=== PATIENT | female | born 1960 | race Caucasian/White ===

== ENCOUNTER 2017-05-01 05:56 | Inpatient (IN) | payer OTHER ==
[2017-05-01] MEDS ORDERED: HEPARIN 1000 UNITS/ML 10 ML INJ (06:56)
[2017-05-01] MEDS ORDERED: CEFAZOLIN 1 GM INJ (06:56)
[2017-05-01] MEDS ORDERED: SODIUM CL BACTERIOSTATIC 30 ML INJ (06:57)
[2017-05-01] MEDS ORDERED: VANCOMYCIN 1 GM (PMX) 250 ML (07:28)
[2017-05-01] MEDS ORDERED: PROPOFOL 20 ML (07:35)
[2017-05-01] MEDS ORDERED: SUCCINYLCHOLINE CHLORIDE 100 MG/5 ML SYG IV (07:35)
[2017-05-01] MEDS ORDERED: MIDAZOLAM 1 MG/ML 2 ML INJ (07:36)
[2017-05-01] MEDS ORDERED: LIDOCAINE 1% (MDV) 20 ML INJ (07:36)
[2017-05-01] MEDS ORDERED: PHENYLephrine (100 MCG/ML) 5ML SYG ×2 (07:53→08:03)
[2017-05-01] MEDS ORDERED: ONDANSETRON 4 MG INJ (09:00)
[2017-05-01] MEDS ORDERED: DEXAMETHASONE 4 MG/ML 1 ML INJ (09:00)
[2017-05-01] MEDS: BUPIVACAINE 0.25%/EPI (SDV) 30 ML INJ (12:06)
[2017-05-01] MEDS: GELATIN SIZE 100 SPONGE (12:07)
[2017-05-01] MEDS: THROMBIN 5000 UNIT VIAL (12:07)
[2017-05-01] MEDS ORDERED: NACL 0.9% 3 ML SYG IV ×2 (13:00→14:00)
[2017-05-01] MEDS ORDERED: NALOXONE (0.4 MG/ML) INJ IV ×3 (13:00→14:00)
[2017-05-01] MEDS ORDERED: PROCHLORPERAZINE 10 MG TAB PO (13:00)
[2017-05-01] MEDS ORDERED: ONDANSETRON 4 MG INJ IV (13:00)
[2017-05-01] MEDS ORDERED: morphine 10 MG INJ (13:18)
[2017-05-01] MEDS ORDERED: morphine (1 MG/ML) 10ML SYRINGE IV ×2 (13:19→13:30)
[2017-05-01] MEDS: HYDROmorphONE 0.2 MG/ML PCA IV ×3 (13:29→20:54)
[2017-05-01] MEDS: morphine (1 MG/ML) 10ML SYRINGE IV (13:30)
[2017-05-01] MEDS ORDERED: morphine 1 MG/ML 30 ML (PCA) (13:36)
[2017-05-01] MEDS ORDERED: MEPERIDINE 25 MG INJ (13:47)
[2017-05-01] MEDS: MEPERIDINE 25 MG INJ IV (13:51)
[2017-05-01] MEDS: MIDAZOLAM 1 MG/ML 2 ML INJ IV (13:59)
[2017-05-01] MEDS: morphine 1 MG/ML 30 ML (PCA) IV (14:00)
[2017-05-01] MEDS ORDERED: morphine 1 MG/ML 30 ML (PCA) IV (14:00)
[2017-05-01] MEDS ORDERED: EPHEDrine SULFATE 50 MG/5 ML SYG (16:03)
[2017-05-01] MEDS ORDERED: ROCURONIUM 50 MG INJ (16:03)
[2017-05-01] MEDS ORDERED: NON-FORMULARY/PATIENT OWN MED (Glatiramer Acetate (Copaxone) 40 MG) SQ (19:00)
[2017-05-01] MEDS: VANCOMYCIN 1 GM (PMX) 250 ML IVPB (19:20)
[2017-05-01] MEDS: ATORVASTATIN 80 MG TAB PO (20:49)
[2017-05-01] MEDS: TIOTROPIUM 18 MCG CAPSULE INHA DEV INH (21:00)
[2017-05-02] MEDS: VANCOMYCIN 1 GM (PMX) 250 ML IVPB (00:22)
[2017-05-02] MEDS: ACETAMINOPHEN 325 MG TAB PO (00:22)
[2017-05-02] MEDS: HYDROCODONE/APAP (5/325) TAB PO (01:10)
[2017-05-02 05:18] LABS: HEMATOCRIT 34.1 % (37.0-47.0); HEMOGLOBIN 11.1 g/dl (12.0-16.0)
[2017-05-02 05:36] LABS: ANION GAP 12 (8-16); BLOOD UREA NITROGEN 10 mg/dl (7-20); CALCIUM 9.2 mg/dl (8.4-10.2); CARBON DIOXIDE 29 mmol/L (21-31); CHLORIDE 104 mmol/L (97-110); CREATININE 0.67 mg/dl (0.44-1.00); GLUCOSE 141 mg/dl (70-220); POTASSIUM 4.9 mmol/L (3.5-5.1); SODIUM 140 mmol/L (135-144)
[2017-05-02] MEDS: HYDROmorphONE 0.2 MG/ML PCA IV ×3 (05:37→23:42)
[2017-05-02] MEDS: [UNRECOGNIZED DRUG - REMARK] XX ×2 (09:00→17:00)
[2017-05-02] MEDS: BISOPROLOL 5 MG TAB PO (09:00)
[2017-05-02] MEDS: DIAZEPAM 5 MG TAB PO ×2 (09:15→21:15)
[2017-05-02] MEDS: TIOTROPIUM 18 MCG CAPSULE INHA DEV INH (09:16)
[2017-05-02] MEDS: BUPROPION (XL) 150 MG TAB PO (09:16)
[2017-05-02] MEDS: morphine (ER) 15 MG TAB PO (09:41)
[2017-05-02 14:37] LABS: ADD UMIC NO; UR ASCORBIC ACID NEGATIVE (NEGATIVE); UR BILIRUBIN (Dip) NEGATIVE (NEGATIVE); UR BLOOD (Dip) NEGATIVE (NEGATIVE); UR CLARITY CLEAR (CLEAR); UR COLOR STRAW (YELLOW); UR GLUCOSE (Dip) NEGATIVE (NEGATIVE); UR KETONES (Dip) NEGATIVE (NEGATIVE); UR LEUKOCYTE ESTERASE (Dip) NEGATIVE Leu/ul (NEGATIVE); UR NITRITE (Dip) NEGATIVE (NEGATIVE); UR TOTAL PROTEIN (Dip) NEGATIVE (NEGATIVE); UR UROBILINOGEN (Dip) NEGATIVE (NEGATIVE)
[2017-05-02] MEDS: ATORVASTATIN 80 MG TAB PO (21:15)
[2017-05-03] MEDS: [UNRECOGNIZED DRUG - REMARK] XX ×3 (01:00→16:46)
[2017-05-03] MEDS: DIAZEPAM 5 MG TAB PO ×2 (08:03→19:42)
[2017-05-03] MEDS: TIOTROPIUM 18 MCG CAPSULE INHA DEV INH (08:25)
[2017-05-03] MEDS: HYDROmorphONE 0.2 MG/ML PCA IV (08:26)
[2017-05-03] MEDS: morphine (ER) 15 MG TAB PO ×2 (08:26→23:51)
[2017-05-03] MEDS: BISOPROLOL 5 MG TAB PO ×2 (08:27→08:28)
[2017-05-03] MEDS: BUPROPION (XL) 150 MG TAB PO (08:27)
[2017-05-03] MEDS: HYDROCODONE/APAP (5/325) TAB PO ×3 (12:22→20:20)
[2017-05-03] MEDS: HYDROmorphONE 1 MG/ML SYG IV ×4 (14:48→23:51)
[2017-05-03] MEDS: SALMETEROL/FLUTICASONE 250/50 INHA INH ×2 (15:39→20:20)
[2017-05-03] MEDS: NICOTINE (21 MG/24 HR) PATCH TRANSDERM (15:40)
[2017-05-03] MEDS: ATORVASTATIN 80 MG TAB PO (19:42)
[2017-05-04] MEDS: [UNRECOGNIZED DRUG - REMARK] XX ×3 (00:42→16:24)
[2017-05-04] MEDS: HYDROmorphONE 1 MG/ML SYG IV ×4 (02:12→09:40)
[2017-05-04] MEDS: TIOTROPIUM 18 MCG CAPSULE INHA DEV INH (08:25)
[2017-05-04] MEDS: SALMETEROL/FLUTICASONE 250/50 INHA INH ×2 (08:25→20:14)
[2017-05-04] MEDS: morphine (ER) 15 MG TAB PO ×2 (08:26→20:14)
[2017-05-04] MEDS: BUPROPION (XL) 150 MG TAB PO (08:27)
[2017-05-04] MEDS: BISOPROLOL 5 MG TAB PO (08:27)
[2017-05-04] MEDS: DIAZEPAM 5 MG TAB PO ×2 (08:27→20:15)
[2017-05-04] MEDS: NICOTINE (21 MG/24 HR) PATCH TRANSDERM (08:31)
[2017-05-04] MEDS: HYDROCODONE/APAP (5/325) TAB PO ×3 (11:28→20:45)
[2017-05-04] MEDS: morphine 2 MG INJ IV (12:07)
[2017-05-04] MEDS: morphine 4 MG/ML VIAL IV ×3 (14:10→21:44)
[2017-05-04] MEDS: ATORVASTATIN 80 MG TAB PO (20:14)
[2017-05-05] MEDS: morphine 4 MG/ML VIAL IV ×6 (00:32→21:31)
[2017-05-05] MEDS: [UNRECOGNIZED DRUG - REMARK] XX ×3 (01:00→17:00)
[2017-05-05] MEDS: HYDROCODONE/APAP (5/325) TAB PO ×5 (01:01→18:35)
[2017-05-05] MEDS: morphine (ER) 15 MG TAB PO ×2 (08:24→20:51)
[2017-05-05] MEDS: BUPROPION (XL) 150 MG TAB PO (08:24)
[2017-05-05] MEDS: SALMETEROL/FLUTICASONE 250/50 INHA INH ×2 (08:25→20:51)
[2017-05-05] MEDS: TIOTROPIUM 18 MCG CAPSULE INHA DEV INH (08:25)
[2017-05-05] MEDS: DIAZEPAM 5 MG TAB PO ×2 (08:25→20:52)
[2017-05-05] MEDS: BISOPROLOL 5 MG TAB PO (08:25)
[2017-05-05] MEDS: NICOTINE (21 MG/24 HR) PATCH TRANSDERM (08:26)
[2017-05-05] MEDS: BISACODYL 10 MG SUPP PR (11:49)
[2017-05-05] MEDS: ATORVASTATIN 80 MG TAB PO (20:51)
[2017-05-06] MEDS: [UNRECOGNIZED DRUG - REMARK] XX ×3 (00:45→16:33)
[2017-05-06] MEDS: morphine 4 MG/ML VIAL IV ×4 (01:18→17:09)
[2017-05-06] MEDS: HYDROCODONE/APAP (5/325) TAB PO ×5 (03:40→23:47)
[2017-05-06] MEDS: BUPROPION (XL) 150 MG TAB PO (08:11)
[2017-05-06] MEDS: DOCUSATE SODIUM 100 MG CAP PO (08:11)
[2017-05-06] MEDS: SALMETEROL/FLUTICASONE 250/50 INHA INH ×2 (08:12→21:00)
[2017-05-06] MEDS: DIAZEPAM 5 MG TAB PO ×2 (08:12→21:08)
[2017-05-06] MEDS: TIOTROPIUM 18 MCG CAPSULE INHA DEV INH (08:13)
[2017-05-06] MEDS: morphine (ER) 15 MG TAB PO ×2 (08:13→21:08)
[2017-05-06] MEDS: BISOPROLOL 5 MG TAB PO (08:14)
[2017-05-06] MEDS: NICOTINE (21 MG/24 HR) PATCH TRANSDERM (08:15)
[2017-05-06] MEDS: GABAPENTIN 300 MG CAP PO ×2 (12:06→21:08)
[2017-05-06] MEDS: [UNRECOGNIZED DRUG - OTHER] SC (20:00)
[2017-05-06] MEDS: ATORVASTATIN 80 MG TAB PO (21:12)
[2017-05-07] MEDS: morphine 4 MG/ML VIAL IV ×3 (03:15→23:19)
[2017-05-07] MEDS: HYDROCODONE/APAP (5/325) TAB PO ×3 (07:39→19:02)
[2017-05-07] MEDS: DOCUSATE SODIUM 100 MG CAP PO (08:22)
[2017-05-07] MEDS: GABAPENTIN 300 MG CAP PO ×3 (08:22→20:45)
[2017-05-07] MEDS: BUPROPION (XL) 150 MG TAB PO (08:22)
[2017-05-07] MEDS: BISOPROLOL 5 MG TAB PO (08:23)
[2017-05-07] MEDS: morphine (ER) 15 MG TAB PO ×2 (08:23→20:45)
[2017-05-07] MEDS: NICOTINE (21 MG/24 HR) PATCH TRANSDERM (08:24)
[2017-05-07] MEDS: SALMETEROL/FLUTICASONE 250/50 INHA INH ×2 (08:24→20:48)
[2017-05-07] MEDS: TIOTROPIUM 18 MCG CAPSULE INHA DEV INH (10:07)
[2017-05-07] MEDS: DIAZEPAM 5 MG TAB PO ×2 (10:08→20:44)
[2017-05-07] MEDS: ATORVASTATIN 80 MG TAB PO (20:44)
[2017-05-08] MEDS: HYDROCODONE/APAP (5/325) TAB PO ×5 (03:18→22:27)
[2017-05-08] MEDS: ACETAMINOPHEN 325 MG TAB PO (06:32)
[2017-05-08] MEDS: TIOTROPIUM 18 MCG CAPSULE INHA DEV INH (08:12)
[2017-05-08] MEDS: GABAPENTIN 300 MG CAP PO ×3 (08:12→20:27)
[2017-05-08] MEDS: morphine (ER) 15 MG TAB PO ×2 (08:13→20:28)
[2017-05-08] MEDS: DOCUSATE SODIUM 100 MG CAP PO (08:13)
[2017-05-08] MEDS: BUPROPION (XL) 150 MG TAB PO (08:13)
[2017-05-08] MEDS: BISOPROLOL 5 MG TAB PO (08:15)
[2017-05-08] MEDS: NICOTINE (21 MG/24 HR) PATCH TRANSDERM (08:15)
[2017-05-08] MEDS: SALMETEROL/FLUTICASONE 250/50 INHA INH ×2 (09:00→21:00)
[2017-05-08] MEDS: LACTULOSE 30ML CUP PO (11:27)
[2017-05-08] MEDS: MAGNESIUM HYDROXIDE 30ML CUP PO (11:27)
[2017-05-08] MEDS: DIAZEPAM 5 MG TAB PO ×2 (12:54→20:28)
[2017-05-08] MEDS: ATORVASTATIN 80 MG TAB PO (20:27)
[2017-05-08] MEDS: [UNRECOGNIZED DRUG - OTHER] SC (21:27)
[2017-05-08] MEDS: DIPHENHYDRAMINE 25 MG CAP PO (21:27)
[2017-05-08] MEDS: LORAZEPAM 2 MG INJ IV (23:00)
[2017-05-08] MEDS ORDERED: BACLOFEN 10 MG TAB PO (23:00)
[2017-05-09] MEDS: HYDROCODONE/APAP (5/325) TAB PO ×3 (04:36→16:13)
[2017-05-09 05:09] LABS: ADD MAN DIFF? NO
[2017-05-09 05:11] LABS: WHITE BLOOD COUNT 8.7 10^3/ul (4.8-10.8)
[2017-05-09 05:11] LABS: BASOPHILS % 0.5 % (0.0-2.0); EOSINOPHILS # 0.2 10^3/ul (0.0-0.5); HEMATOCRIT 31.3 % (37.0-47.0); LYMPHOCYTES # 1.1 10^3/ul (0.8-2.9); LYMPHOCYTES % 12.8 % (15.0-51.0); MEAN CORPUSCULAR HEMOGLOBIN 29.4 pg (29.0-33.0); MEAN CORPUSCULAR HGB CONC 31.9 g/dl (32.0-37.0); MEAN CORPUSCULAR VOLUME 92.1 fl (82.0-101.0); MEAN PLATELET VOLUME 9.2 fl (7.4-10.4); MONOCYTE # 0.6 10^3/ul (0.3-0.9); NEUTROPHIL # 6.8 10^3/ul (1.6-7.5); NEUTROPHILS % 77.5 % (39.0-77.0); PLATELET COUNT 374 10^3/UL (140-415); RED CELL DISTRIBUTION WIDTH 12.3 % (11.5-14.5)
[2017-05-09 05:42] LABS: ALANINE AMINOTRANSFERASE 52 IU/L (13-69); ALBUMIN 3.3 g/dl (3.3-4.9); ALBUMIN/GLOBULIN RATIO 1.26; ALKALINE PHOSPHATASE 84 IU/L (42-121); ANION GAP 15 (8-16); ASPARTATE AMINO TRANSFERASE 49 IU/L (15-46); BLOOD UREA NITROGEN 18 mg/dl (7-20); CALCIUM 8.9 mg/dl (8.4-10.2); CARBON DIOXIDE 28 mmol/L (21-31); CHLORIDE 105 mmol/L (97-110); GLUCOSE 115 mg/dl (70-220); POTASSIUM 4.5 mmol/L (3.5-5.1); SODIUM 143 mmol/L (135-144); TOTAL PROTEIN 5.9 g/dl (6.1-8.1)
[2017-05-09] MEDS: DOCUSATE SODIUM 100 MG CAP PO (08:26)
[2017-05-09] MEDS: GABAPENTIN 300 MG CAP PO ×2 (08:26→12:11)
[2017-05-09] MEDS: ACETAMINOPHEN 325 MG TAB PO (08:26)
[2017-05-09] MEDS: TIOTROPIUM 18 MCG CAPSULE INHA DEV INH (08:27)
[2017-05-09] MEDS: BUPROPION (XL) 150 MG TAB PO (08:27)
[2017-05-09] MEDS: morphine (ER) 15 MG TAB PO (08:27)
[2017-05-09] MEDS: DIAZEPAM 5 MG TAB PO (08:27)
[2017-05-09] MEDS: NICOTINE (21 MG/24 HR) PATCH TRANSDERM (08:28)
[2017-05-09] MEDS: SALMETEROL/FLUTICASONE 250/50 INHA INH (08:28)
[2017-05-09] MEDS: BISOPROLOL 5 MG TAB PO (08:28)
== END 2017-05-09 16:50 | disposition short-term general hospital (02) | DRG 455 ==
LOC: REC 05:56 → MS1 14:45
PROC: 0SG30A0 Fusion of Lumbosacral Joint with Interbody Fusion Device, Anterior Approach, Anterior Column, Open Approach (ICD-10-PCS; principal; 2017-05-01 07:29)
PROC: 0SG30K1 Fusion of Lumbosacral Joint with Nonautologous Tissue Substitute, Posterior Approach, Posterior Column, Open Approach (ICD-10-PCS; 2017-05-01 07:29)
PROC: 0ST40ZZ Resection of Lumbosacral Disc, Open Approach (ICD-10-PCS; 2017-05-01 07:29)
DX: M43.17 Spondylolisthesis, lumbosacral region (principal); G35 Multiple sclerosis; I10 Essential (primary) hypertension; M51.17 Intervertebral disc disorders with radiculopathy, lumbosacral region; J44.9 Chronic obstructive pulmonary disease, unspecified; E78.5 Hyperlipidemia, unspecified; F41.9 Anxiety disorder, unspecified; K80.20 Calculus of gallbladder without cholecystitis without obstruction; F17.210 Nicotine dependence, cigarettes, uncomplicated; F33.41 Major depressive disorder, recurrent, in partial remission
CPT/HCPCS: 71010; 72100; 72110; 80048; 80053; 81003; 85014; 85018; 85025; 86850; 86900; 86901; 86920; 87086; 97110; 97116; 97163; 97530

== ENCOUNTER 2017-05-09 17:23 | Inpatient (IN) | payer OTHER ==
[2017-05-09] MEDS: HYDROCODONE/APAP (5/325) TAB PO (19:13)
[2017-05-09] MEDS ORDERED: ONDANSETRON 4 MG INJ IV (19:30)
[2017-05-09] MEDS ORDERED: NACL 0.9% 3 ML SYG IV (19:30)
[2017-05-09] MEDS: DIAZEPAM 5 MG TAB PO (20:13)
[2017-05-09] MEDS: ATORVASTATIN 80 MG TAB PO (20:13)
[2017-05-09] MEDS: morphine (ER) 15 MG TAB PO (20:13)
[2017-05-09] MEDS: SALMETEROL/FLUTICASONE 250/50 INHA INH (20:13)
[2017-05-09] MEDS: GABAPENTIN 300 MG CAP PO (20:13)
[2017-05-09] MEDS: ACETAMINOPHEN 325 MG TAB PO (22:21)
[2017-05-09 23:12] LABS: UR BACTERIA FEW /HPF (NONE SEEN); UR MUCUS FEW /HPF (NONE SEEN); UR RBC 1 /HPF (0-5); UR SQUAMOUS EPITHELIAL CELL FEW /HPF (FEW); UR WBC 4 /HPF (0-5)
[2017-05-09 23:16] LABS: ADD UMIC YES; UR ASCORBIC ACID NEGATIVE (NEGATIVE); UR BILIRUBIN (Dip) NEGATIVE (NEGATIVE); UR BLOOD (Dip) 1+ mg/dL (NEGATIVE); UR CLARITY SLIGHTLY CLOUDY (CLEAR); UR COLOR YELLOW (YELLOW); UR GLUCOSE (Dip) NEGATIVE (NEGATIVE); UR KETONES (Dip) NEGATIVE (NEGATIVE); UR LEUKOCYTE ESTERASE (Dip) TRACE Leu/ul (NEGATIVE); UR NITRITE (Dip) POSITIVE (NEGATIVE); UR SPECIFIC GRAVITY (Dip) 1.013 (1.003-1.030); UR TOTAL PROTEIN (Dip) NEGATIVE (NEGATIVE); UR UROBILINOGEN (Dip) NEGATIVE (NEGATIVE)
[2017-05-10] MEDS: HYDROCODONE/APAP (5/325) TAB PO ×4 (02:04→12:53)
[2017-05-10] MEDS ORDERED: MAGNESIUM HYDROXIDE 30ML CUP PO (04:00)
[2017-05-10] MEDS ORDERED: LACTULOSE 30ML CUP PO (04:00)
[2017-05-10] MEDS ORDERED: BISACODYL 10 MG SUPP PR (04:00)
[2017-05-10] MEDS ORDERED: ACETAMINOPHEN 325 MG TAB PO (04:00)
[2017-05-10 06:50] LABS: ADD MAN DIFF? NO
[2017-05-10 07:08] LABS: BASOPHIL # 0.1 10^3/ul (0.0-0.1); BASOPHILS % 0.7 % (0.0-2.0); EOSINOPHILS # 0.3 10^3/ul (0.0-0.5); EOSINOPHILS % 3.9 % (0.0-7.0); HEMATOCRIT 31.6 % (37.0-47.0); HEMOGLOBIN 9.8 g/dl (12.0-16.0); LYMPHOCYTES # 2.4 10^3/ul (0.8-2.9); LYMPHOCYTES % 35.7 % (15.0-51.0); MEAN CORPUSCULAR HEMOGLOBIN 29.2 pg (29.0-33.0); MEAN PLATELET VOLUME 9.1 fl (7.4-10.4); MONOCYTE # 0.8 10^3/ul (0.3-0.9); MONOCYTES % 11.7 % (0.0-11.0); NEUTROPHIL # 3.2 10^3/ul (1.6-7.5); NEUTROPHILS % 47.9 % (39.0-77.0); PLATELET COUNT 388 10^3/UL (140-415); RED BLOOD COUNT 3.36 10^6/ul (4.20-5.40); RED CELL DISTRIBUTION WIDTH 12.1 % (11.5-14.5)
[2017-05-10 07:08] LABS: WHITE BLOOD COUNT 6.7 10^3/ul (4.8-10.8)
[2017-05-10 07:18] LABS: ALANINE AMINOTRANSFERASE 53 IU/L (13-69); ALBUMIN 3.2 g/dl (3.3-4.9); ALBUMIN/GLOBULIN RATIO 1.18; ALKALINE PHOSPHATASE 73 IU/L (42-121); ANION GAP 12 (8-16); ASPARTATE AMINO TRANSFERASE 43 IU/L (15-46); BLOOD UREA NITROGEN 13 mg/dl (7-20); CALCIUM 9.3 mg/dl (8.4-10.2); CARBON DIOXIDE 30 mmol/L (21-31); CHLORIDE 105 mmol/L (97-110); GLUCOSE 94 mg/dl (70-220); POTASSIUM 4.2 mmol/L (3.5-5.1); SODIUM 143 mmol/L (135-144); TOTAL PROTEIN 5.9 g/dl (6.1-8.1)
[2017-05-10] MEDS: BACLOFEN 10 MG TAB PO (08:44)
[2017-05-10] MEDS: BUPROPION (XL) 150 MG TAB PO (08:44)
[2017-05-10] MEDS: SALMETEROL/FLUTICASONE 250/50 INHA INH ×2 (08:44→20:29)
[2017-05-10] MEDS: GABAPENTIN 300 MG CAP PO ×2 (08:45→12:53)
[2017-05-10] MEDS: TIOTROPIUM 18 MCG CAPSULE INHA DEV INH (08:45)
[2017-05-10] MEDS: DOCUSATE SODIUM 100 MG CAP PO ×2 (08:45→20:26)
[2017-05-10] MEDS: NICOTINE (21 MG/24 HR) PATCH TRANSDERM (08:46)
[2017-05-10] MEDS: morphine (ER) 15 MG TAB PO ×2 (08:46→20:27)
[2017-05-10] MEDS: BISOPROLOL 5 MG TAB PO (08:52)
[2017-05-10] MEDS: DIAZEPAM 5 MG TAB PO (08:52)
[2017-05-10] MEDS ORDERED: DOCUSATE SODIUM 100 MG CAP PO (09:00)
[2017-05-10] MEDS ORDERED: HYDROCODONE/APAP (10/325) TAB NGT (13:30)
[2017-05-10] MEDS: FOSFOMYCIN 3 GM PACKET PO (16:38)
[2017-05-10] MEDS: HYDROCODONE/APAP (10/325) TAB PO ×2 (16:45→23:19)
[2017-05-10] MEDS: SENNA TAB PO (20:26)
[2017-05-10] MEDS: GABAPENTIN 400 MG CAP PO (20:27)
[2017-05-10] MEDS: ATORVASTATIN 80 MG TAB PO (20:29)
[2017-05-11] MEDS: HYDROCODONE/APAP (10/325) TAB PO ×4 (06:00→23:21)
[2017-05-11] MEDS: LEVOFLOXACIN 250 MG TAB PO (06:00)
[2017-05-11] MEDS: BUPROPION (XL) 150 MG TAB PO (08:29)
[2017-05-11] MEDS: DOCUSATE SODIUM 100 MG CAP PO ×2 (08:29→21:00)
[2017-05-11] MEDS: TIOTROPIUM 18 MCG CAPSULE INHA DEV INH (08:30)
[2017-05-11] MEDS: GABAPENTIN 400 MG CAP PO ×3 (08:30→21:05)
[2017-05-11] MEDS: morphine (ER) 15 MG TAB PO ×2 (08:30→21:06)
[2017-05-11] MEDS: SALMETEROL/FLUTICASONE 250/50 INHA INH ×2 (08:31→21:00)
[2017-05-11] MEDS: NICOTINE (21 MG/24 HR) PATCH TRANSDERM (08:32)
[2017-05-11] MEDS: ACETAMINOPHEN 325 MG TAB PO (09:53)
[2017-05-11] MEDS: BACLOFEN 10 MG TAB PO (19:53)
[2017-05-11] MEDS: SENNA TAB PO (21:00)
[2017-05-11] MEDS: ATORVASTATIN 80 MG TAB PO (21:05)
[2017-05-11] MEDS: DIAZEPAM 5 MG TAB PO (21:09)
[2017-05-12] MEDS: LEVOFLOXACIN 250 MG TAB PO (06:01)
[2017-05-12] MEDS: HYDROCODONE/APAP (10/325) TAB PO ×3 (06:02→15:59)
[2017-05-12] MEDS: BUPROPION (XL) 150 MG TAB PO (08:26)
[2017-05-12] MEDS: GABAPENTIN 400 MG CAP PO ×3 (08:26→20:41)
[2017-05-12] MEDS: morphine (ER) 15 MG TAB PO ×3 (08:27→20:41)
[2017-05-12] MEDS: DOCUSATE SODIUM 100 MG CAP PO ×2 (08:27→20:41)
[2017-05-12] MEDS: PROCHLORPERAZINE 10 MG TAB PO (08:27)
[2017-05-12] MEDS: NICOTINE (21 MG/24 HR) PATCH TRANSDERM (08:28)
[2017-05-12] MEDS: SALMETEROL/FLUTICASONE 250/50 INHA INH ×2 (09:48→22:18)
[2017-05-12] MEDS: TIOTROPIUM 18 MCG CAPSULE INHA DEV INH (09:53)
[2017-05-12] MEDS ORDERED: DIAZEPAM 5 MG TAB PO (10:30)
[2017-05-12] MEDS: SENNA TAB PO (20:41)
[2017-05-12] MEDS: ATORVASTATIN 80 MG TAB PO (20:42)
[2017-05-12] MEDS: DIAZEPAM 5 MG TAB PO (22:18)
[2017-05-13] MEDS: HYDROCODONE/APAP (10/325) TAB PO ×3 (00:44→11:27)
[2017-05-13] MEDS: LEVOFLOXACIN 250 MG TAB PO (06:16)
[2017-05-13] MEDS: TIOTROPIUM 18 MCG CAPSULE INHA DEV INH (08:10)
[2017-05-13] MEDS: BUPROPION (XL) 150 MG TAB PO (08:10)
[2017-05-13] MEDS: GABAPENTIN 400 MG CAP PO ×3 (08:10→20:51)
[2017-05-13] MEDS: SALMETEROL/FLUTICASONE 250/50 INHA INH ×2 (08:11→20:59)
[2017-05-13] MEDS: NICOTINE (21 MG/24 HR) PATCH TRANSDERM (08:11)
[2017-05-13] MEDS: DOCUSATE SODIUM 100 MG CAP PO ×2 (08:14→20:53)
[2017-05-13] MEDS: morphine (ER) 15 MG TAB PO ×2 (08:57→20:52)
[2017-05-13] MEDS: OXYCODONE/ACETAMINOPHEN (10/325) TAB PO ×2 (15:50→19:52)
[2017-05-13] MEDS: INFLUENZA VIRUS VACCINE 0.5 ML (DISPENSING) IM* (15:52)
[2017-05-13] MEDS: ATORVASTATIN 80 MG TAB PO (20:51)
[2017-05-13] MEDS: SENNA TAB PO (20:53)
[2017-05-13] MEDS: DIAZEPAM 5 MG TAB PO (20:56)
[2017-05-14] MEDS: OXYCODONE/ACETAMINOPHEN (10/325) TAB PO ×3 (00:05→08:36)
[2017-05-14] MEDS: LEVOFLOXACIN 250 MG TAB PO (05:36)
[2017-05-14] MEDS: NICOTINE (21 MG/24 HR) PATCH TRANSDERM (08:34)
[2017-05-14] MEDS: BUPROPION (XL) 150 MG TAB PO (08:34)
[2017-05-14] MEDS: TIOTROPIUM 18 MCG CAPSULE INHA DEV INH (08:34)
[2017-05-14] MEDS: DOCUSATE SODIUM 100 MG CAP PO (08:35)
[2017-05-14] MEDS: SALMETEROL/FLUTICASONE 250/50 INHA INH (08:35)
[2017-05-14] MEDS: GABAPENTIN 400 MG CAP PO (08:35)
[2017-05-14] MEDS: morphine (ER) 15 MG TAB PO (09:08)
[2017-05-14] MEDS: OXYCODONE/ACETAMINOPHEN (5/325) TAB PO (11:41)
== END 2017-05-14 12:26 | disposition home health service (06) | DRG 560 ==
LOC: VRC 05-10 13:37
PROC: F07Z5ZZ Bed Mobility Treatment (ICD-10-PCS; principal; 2017-05-09)
PROC: F08Z2ZZ Grooming/Personal Hygiene Treatment (ICD-10-PCS; 2017-05-09)
DX: Z47.89 Encounter for other orthopedic aftercare (principal); N39.0 Urinary tract infection, site not specified; G35 Multiple sclerosis; I10 Essential (primary) hypertension; M48.061 Spinal stenosis, lumbar region without neurogenic claudication; G62.9 Polyneuropathy, unspecified; G89.29 Other chronic pain; J44.9 Chronic obstructive pulmonary disease, unspecified; E66.9 Obesity, unspecified; Z68.29 Body mass index [BMI] 29.0-29.9, adult; F32.9 Major depressive disorder, single episode, unspecified; F41.9 Anxiety disorder, unspecified; E78.5 Hyperlipidemia, unspecified; F17.200 Nicotine dependence, unspecified, uncomplicated
CPT/HCPCS: 80053; 81001; 85025; 87081; 87086; 90686; 97110; 97112; 97116; 97167; 97530; 97535